=== PATIENT | male | born 1985 | race Two or more races ===

== ENCOUNTER 2023-10-28 12:55 | Emergency (ER) | payer BC, OTHER ==
[~2023-10-28] VITALS: Ht 175.3 cm; Wt 100.2 kg
[2023-10-28 15:00] VITALS: BP 136/59; PULSE 72; RESP 18; TEMP 98.9; O2SAT 97
[2023-10-28 16:24] LABS: Amphetamine Screen, Urine Neg (NEGATIVE); Benzodiazephine Screen, Urine Neg (NEGATIVE)
[2023-10-28 16:25] LABS: Barbiturate Scree,Urine Neg (NEGATIVE); Cannabinoid Screen, Urine Neg (NEGATIVE); Cocaine Screen, Urine Neg (NEGATIVE); Opiate Scree,Urine Neg (NEGATIVE); Phencyclidine Screen, Urine Neg (NEGATIVE)
== END 2023-10-28 16:11 | disposition home or self-care (01) ==
LOC: ER 12:55
DX: R51.9 Headache, unspecified (principal); V89.2XXA Person injured in unspecified motor-vehicle accident, traffic, initial encounter; Y93.89 Activity, other specified; Y92.89 Other specified places as the place of occurrence of the external cause; Y99.8 Other external cause status
CPT/HCPCS: 70450; 80307